=== PATIENT | male | born 1970 | race Caucasian/White ===

== ENCOUNTER 2022-12-18 19:00 | Inpatient (IN) ==
--- NOTE | 2022-12-18 20:11 | DR.ABDMALE ---
HPI Time seen Time Seen by Provider: 12/18/22 20:11 PCP Primary Care Physician: Turk Complaint Chief Complaint Doctors Comments: 52 y/o male presents for evaluation. Having lower abdominal pain over the past 4 days. Started right lower quadrant, very sharp, radiates across lower abdomen. Pain worse with palpation and movement. Worse with jarring in the car. Nothing makes it better. Denies fevers or chills. No nausea, vomiting, diarrhea or constipation. No change in his urine. Patient with history of several kidney stones in the past. Chief Complaint:: Patient stated for the last four days he has been hurting acr oss his lower abdomen. Patient stated it hurts when anything pushes on his lower abdomen. COVID-19 Coronavirus risk:travel/contact w/high risk person: No Has patient experienced Coronavirus symptoms: No Reviewed Nurses Notes Review: Yes Source History provided by:: Patient Mode of arrival Mode of Arrival: Ambulatory Timing Onset of Chief Complaint: 12/15/22 PMH PMH Past Medical History: Yes Past Medical History: Kidney Stones Past Surgical History: No Family History History of Family Medical Conditions: No Social History Does patient currently use any type of tobacco product: No Have you used tobacco products in the last 12 months: No Type of Tobacco Use: None Does any household member use tobacco: No Alcohol Use: None Do you use any recreational Drugs:: No Lives With: Alone Lives Where: Home Travel Risk Coronavirus risk:travel/contact w/high risk person: No Has patient experienced Coronavirus symptoms: No Infectious screening In the last 2 months have you had wt loss of >10#?: NO Have you had fever, night sweats or hemotysis?: No Have you traveled outside the country in the last 6 months?: No Isolation: Standard ROS Review of Systems Constitutional: No Symptoms Reported Eyes: No Symptoms Reported ENTM: No Symptoms Reported Respiratoy: No Symptoms Reported Cardiovascular: No Symptoms Reported Gastrointestinal/Abdominal: See HPI Genitourinary: No Symptoms Reported Neurological: No Symptoms Reported Musculoskeletal: No Symptoms Reported Integumentary: No Symptoms Reported Hematologic/Lymphatic: No Symptoms Reported All Other Systems: Reviewed and Negative PE Vital Signs Vital Signs: Temp Pulse Resp BP Pulse Ox O2 Del Method 12/18/22 20:33 20 12/18/22 19:20 97.8 F 107 H 20 134/79 97 Room Air General General Appearance: Alert and In No Apparent Distress Eyes Eye exam: PERRL and EOMI ENT ENT Exam: Mucous Membranes Moist Neck Neck Exam: Normal Inspection Respiratory Respiratory Exam: Normal Lung Sounds Bilat; negative Accessory Muscle Use or Respiratory Distress Cardiovascular Cardiovascular Exam: Regular Rate, Normal Rhythm and Normal Heart Sounds Abdominal Exam Abdominal Exam: Normal Bowel Sounds, Soft and Tenderness (RLQ > LLQ, with guarding, but no true rebound. ) Extremeties Extremities Exam: Normal Inspection Neurologic Neurological Exam: Alert, Oriented X3 and CN II-XII Intact; negative Motor Sensory Deficit Skin Skin Exam: Warm and Dry COURSE Treatment Treatment: 52-year-old male with lower abdominal pain over the past 4 days. Right lower quadrant worse than left. Work-up initiated. Patient given IV fluids, IV Toradol. 2244 -Labs overall acceptable. Patient underwent CT of the abdomen pelvis with IV contrast. Findings on the CT show sigmoid colon diverticulitis with evidence of microperforation. Also has bilateral intrarenal stones. Discussed with Dr. Mckeon, he will consult. Discussed with Dr. Gayle, he will admit. ROR Labs Reviewed Laboratory Results Reviewed?: Yes 12/18/22 20:30 12/18/22 20:30 Laboratory: WBC 8.7 X10^3/uL (3.6-10.0) 12/18/22 20: RBC 4.90 X10^6/uL (4.7-6.0) 12/18/22 20:30 Hgb 15.8 g/dL (13.5-18.0) 12/18/22 20:30 Hct 45.7 % (42.0-54.0) 12/18/22 20:30 MCV 93.3 fL (80.0-100.0) 12/18/22 20:30 MCH 32.2 pg (27.0-34.0) 12/18/22 20:30 MCHC 34.5 g/dL (33.0-35.0) 12/18/22 20:30 RDW 13.3 % (11.6-16.5) 12/18/22 20:30 Plt Count 224 X10^3/uL (150.0-450.0) 12/18/22 20:30 MPV 9.1 fL (7.4-11.0) 12/18/22 20:30 Neut % (Auto) 70.6 % (42.0-75.0) 12/18/22 20:30 Lymph % (Auto) 17.8 % (21.0-51.0) L 12/18/22 20:30 [place] % (Auto) 9.4 % (0.0-13.0) 12/18/22 20:30 Eos % (Auto) 1.8 % (0.9-2.9) 12/18/22 20:30 Baso % (Auto) 0.4 % (0.2-1.0) 12/18/22 20:30 Neut # (Auto) 6.1 x10^3/uL (2.2-4.8) H 12/18/22 20:30 Lymph # (Auto) 1.5 X10^3/uL (1.3-2.9) 12/18/22 20:30 [place] # (Auto) 0.8 x10^3/uL (0.3-0.8) 12/18/22 20:30 Eos # (Auto) 0.2 x10^3/uL (0.0-0.2) 12/18/22 20:30 Baso # (Auto) 0.0 X10^3/uL (0.0-0.1) 12/18/22 20:30 Absolute Nucleated RBC 0.1 /100WBC 12/18/22 20:30 Sodium 135 mmol/L (136-145) L 12/18/22 20:30 Corrected Sodium TNP 12/18/22 20:30 Potassium 3.8 mmol/L (3.5-5.1) 12/18/22 20:30 Chloride 98 mmol/L (98-107) 12/18/22 20:30 Carbon Dioxide 28.0 mmol/L (21-32) 12/18/22 20:30 BUN 12 mg/dL (7-18) 12/18/22 20:30 Creatinine 1.23 mg/dL (0.70-1.30) 12/18/22 20:30 Est GFR (MDRD) Af Amer > 60 (>60) 12/18/22 20:30 Est GFR (MDRD) Non-Af > 60 (>60) 12/18/22 20:30 Glucose 103 mg/dL (65-99) H 12/18/22 20:30 Calcium 8.7 mg/dL (8.5-10.1) 12/18/22 20: Corrected Calcium TNP 12/18/22 20: Total Bilirubin 2.80 mg/dL (0.2-1.0) H 12/18/22 20:30 AST 32 Units/L (15-37) 12/18/22 20: ALT 47 Units/L (12-78) 12/18/22 20: Alkaline Phosphatase 139 Units/L (46-116) H 12/18/22 20:30 Total Protein 7.9 g/dL (6.4-8.2) 12/18/22 20: Albumin 3.5 g/dL (3.4-5.0) 12/18/22 20: Globulin 4.4 g/dL (2.5-4.5) 12/18/22 20:30 Albumin/Globulin Ratio 0.8 Ratio (1.1-2.1) L 12/18/22 20: Lipase 111 Units/L (16-77) H 12/18/22 20:30 Specimen Type Clean catch urine 12/18/22 20:08 Urine Color Carolyn (YELLOW) 12/18/22 20:08 Urine Appearance Clear (CLEAR) 12/18/22 20:08 Urine pH 6.0 (5.0 - 8.0) 12/18/22 20:08 Ur Specific [place] 1.025 (1.000-1.030) 12/18/22 20:08 Urine Protein 2+ (NEGATIVE) 12/18/22 20:08 Urine Glucose (UA) Negative (NEGATIVE) 12/18/22 20:08 Urine Ketones 1+ (NEGATIVE) 12/18/22 20:08 Urine Blood 1+ (NEGATIVE) 12/18/22 20:08 Urine Nitrite Negative (NEGATIVE) 12/18/22 20:08 Urine Bilirubin 1+ (NEGATIVE) 12/18/22 20:08 Urine Urobilinogen 3+ (NORMAL) 12/18/22 20:08 Ur Leukocyte Esterase 1+ (NEGATIVE) 12/18/22 20:08 Urine RBC 0-2 /HPF (0-3) 12/18/22 20:08 Urine WBC 3-5 /HPF (0-5) 12/18/22 20:08 Ur Squamous Epith Cells Rare /HPF (NEGATIVE) 12/18/22 20:08 Urine Bacteria Trace /HPF (NEGATIVE) 12/18/22 20:08 Urine Mucus Moderate /HPF (NEGATIVE) 12/18/22 20:08 Ur Culture Indicated? No/not indicated 12/18/22 20:08 Labs acceptable XRAY XRAY Interpreted by: Radiologist X-ray Results: HISTORY Patient stated for the last four days he has been hurting across his lower abdomen. Patient stated it hurts when anything pushes on his lower abdomen. STUDY ABDOMEN/PELVIS WITH CON COMPARISON None TECHNIQUE Multiple axial images of the abdomen and pelvis were obtained from the lung bases to the pubic symphysis after the administration of IV contrast. Dose reduction techniques including Automated Exposure Control (AEC) and adjustment of mA and kV were utilized. FINDINGS The visualized portions of the lung bases are unremarkable . The liver, spleen, pancreas, and adrenal glands are unremarkable in their CT appearance. The gallbladder is unremarkable in its CT appearance the kidneys are normal in size. Bilateral nephrolithiasis, nonobstructing.. No significant mesenteric lymphadenopathy or stranding can be observed. No free fluid or free air is seen within the abdomen. Normal appendix right lower quadrant. No bowel wall thickening or bowel dilatation is present. Colon is normal in caliber. There are scattered diverticula arising from the descending and sigmoid colon. There is focal colonic wall thickening and pericolonic inflammation a surrounding the sigmoid colon consistent with acute diverticulitis. There is a small a collection of extraluminal air indicative of micro perforation.. No abscess is identified. The urinary bladder is grossly unremarkable. The bony structures are grossly intact. IMPRESSION Acute sigmoid colon diverticulitis with evidence of micro perforation. Bilateral nephrolithiasis, nonobstructing. Electronically signed by: Casimiro Villeda (Dec 18, 2022 22:30:21) Opioid Opioid Risk Tool Age (Trace box if 16-45): No History of Preadolescent Sexual Abuse: No Total: 0 Total Score Risk Category: Low Risk Copyright: Kody JOHNSON predicting aberrant behaviors Discharge Plan Diagnosis Discharge Problem: Perforation of sigmoid colon due to diverticulitis Discharge Plan Patient Disposition: 09 ADMITTED INPATIENT Condition: Stable Prescriptions: No Action [facility] Concerns: Post Hospitalization: new medications and changes needed to prevent readmission or further decline. Pt educated and given instructions on all concerns. Plan of Treatment: Continue with present treatment and follow up plan. Pt is to keep follow up appointment as instructed and take medications as ordered. Orders to Discharge Patient Discharge Orders: Transfer (Routine); Ordered 12/18/22 Ordered By: Hans Morse Follow ups/Referrals Follow ups/Referrals: [place] ESTRADA [Primary Care Provider] - 3 days
[2022-12-18 20:14] LABS: BILIRUBIN,URINE 1+ (NEGATIVE); BLOOD/HEMOGLOBIN,URINE 1+ (NEGATIVE); GLUCOSE, URINE NEGATIVE (NEGATIVE); KETONES,URINE 1+ (NEGATIVE); LEUKOCYTE ESTERASE ,URINE 1+ (NEGATIVE); NITRITES,URINE NEGATIVE (NEGATIVE); PROTEIN,URINE 2+ (NEGATIVE); UROBILINOGEN,URINE 3+ (NORMAL)
[2022-12-18] MEDS ORDERED: NS 1,000 ML IV 1,000 ML ONE (20:14)
[2022-12-18] MEDS ORDERED: TORADOL 30 MG VIAL IVP ONE (20:17)
[2022-12-18] MEDS ORDERED: NS 1,000 ML IV 1,000 ML IV ONE (20:17)
[2022-12-18] MEDS ORDERED: TORADOL 30 MG VIAL ONE (20:23)
[2022-12-18 20:24] LABS: APPEARANCE,URINE CLEAR (CLEAR); COLOR,URINE AMBER (YELLOW)
[2022-12-18 20:25] LABS: BACTERIA,URINE TRACE /HPF (NEGATIVE); RBC,URINE 0-2 /HPF (0-3); SQUAMOUS EPITHELIAL CELL,UR RARE /HPF (NEGATIVE)
[2022-12-18 20:50] LABS: BASOPHILS % (AUTO) 0.4 % (0.2-1.0); EOSINOPHILS # (AUTO) 0.2 x10^3/uL (0.0-0.2); EOSINOPHILS % (AUTO) 1.8 % (0.9-2.9); HEMATOCRIT 45.7 % (42.0-54.0); HEMOGLOBIN 15.8 g/dL (13.5-18.0); LYMPHOCYTES # (AUTO) 1.5 X10^3/uL (1.3-2.9); LYMPHOCYTES % (AUTO) 17.8 % (21.0-51.0); MEAN CORPUSCULAR HEMOGLOBIN 32.2 pg (27.0-34.0); MEAN CORPUSCULAR HGB CONC 34.5 g/dL (33.0-35.0); MEAN CORPUSCULAR VOLUME 93.3 fL (80.0-100.0); MEAN PLATELET VOLUME 9.1 fL (7.4-11.0); MONOCYTES # (AUTO) 0.8 x10^3/uL (0.3-0.8); MONOCYTES % (AUTO) 9.4 % (0.0-13.0); NEUTROPHILS # (AUTO) 6.1 x10^3/uL (2.2-4.8); NEUTROPHILS % (AUTO) 70.6 % (42.0-75.0); PLATELET COUNT 224 X10^3/uL (150.0-450.0); RED CELL DISTRIBUTION WIDTH 13.3 % (11.6-16.5); WHITE BLOOD COUNT 8.7 X10^3/uL (3.6-10.0)
[2022-12-18 21:06] LABS: ALANINE AMINOTRANSFERASE 47 Units/L (12-78); ALBUMIN 3.5 g/dL (3.4-5.0); ALKALINE PHOSPHATASE 139 Units/L (46-116); ASPARTATE AMINO TRANSFERASE 32 Units/L (15-37); BLOOD UREA NITROGEN 12 mg/dL (7-18); CALCIUM 8.7 mg/dL (8.5-10.1); CHLORIDE 98 mmol/L (98-107); CREATININE 1.23 mg/dL (0.70-1.30); GLUCOSE 103 mg/dL (65-99); LIPASE 111 Units/L (16-77); POTASSIUM 3.8 mmol/L (3.5-5.1); SODIUM 135 mmol/L (136-145); TOTAL PROTEIN 7.9 g/dL (6.4-8.2); eGFR NON BLACK RACES > 60 (>60)
[2022-12-18] MEDS ORDERED: NS 100 ML IV 100 ML ONE (21:52)
[2022-12-18] MEDS ORDERED: OMNIPAQUE 350 mg/mL 100 mL BTL 100 ML ONE (21:53)
--- NOTE | 2022-12-18 22:31 | CT ---
HISTORYPatient stated for the last four days he has been hurting across his lower abdomen. Patient stated it hurts when anything pushes on his lower abdomen.STUDYABDOMEN/PELVIS WITH CONCOMPARISONNoneTECHNIQUEMultiple axial images of the abdomen and pelvis were obtained from the lung bases to the pubic symphysis after the administration of IV contrast. Dose reduction techniques including Automated Exposure Control (AEC) and adjustment of mA and kV were utilized.FINDINGSThe visualized portions of the lung bases are unremarkable . The liver, spleen, pancreas, and adrenal glands are unremarkable in their CT appearance. The gallbladder is unremarkable in its CT appearance the kidneys are normal in size. Bilateral nephrolithiasis, nonobstructing.. No significant mesenteric lymphadenopathy or stranding can be observed. No free fluid or free air is seen within the abdomen. Normal appendix right lower quadrant. No bowel wall thickening or bowel dilatation is present. Colon is normal in caliber. There are scattered diverticula arising from the descending and sigmoid colon. There is focal colonic wall thickening and pericolonic inflammation a surrounding the sigmoid colon consistent with acute diverticulitis. There is a small a collection of extraluminal air indicative of micro perforation.. No abscess is identified. The urinary bladder is grossly unremarkable. The bony structures are grossly intact.IMPRESSIONAcute sigmoid colon diverticulitis with evidence of micro perforation.Bilateral nephrolithiasis, nonobstructing.Electronically signed by: Casimiro Villeda (Dec 18, 2022 22:30:21)
[2022-12-18] MEDS ORDERED: FLAGYL IV PREMIX 500 MG BAG 500 MG/100 ML BAG IV STA (23:13)
[2022-12-18] MEDS ORDERED: FLAGYL IV PREMIX 500 MG BAG 500 MG/100 ML BAG IV ONE (23:15)
[2022-12-19] MEDS ORDERED: CONSULT PHARMACY - POTASSIUM & MAGNESIUM XX SCH (00:16)
[2022-12-19] MEDS ORDERED: MORPHINE SULFATE INJ 4 MG IVP PRN (00:16)
[2022-12-19] MEDS ORDERED: ZOFRAN INJ 4 MG VIAL IVP PRN (00:16)
[2022-12-19] MEDS ORDERED: K-DUR TAB 20 MEQ PO SCH (01:00)
[2022-12-19] MEDS: D5 1/2 NS 1,000 ML 1,000 ML IV SCH ×4 (01:03→17:51)
[2022-12-19] MEDS: K-RIDER 10 MEQ/NS 100 ML 10 MEQ/100 ML BAG IV SCH ×2 (01:04→03:09)
[2022-12-19] MEDS: LEVAQUIN PREMIX IV 750 MG 750 MG/150 ML BAG IV SCH (01:14)
[2022-12-19 01:30] VITALS: BMI 40.7
[2022-12-19] MEDS: FLAGYL IV PREMIX 500 MG BAG 500 MG/100 ML BAG IV SCH ×4 (02:43→23:19)
[2022-12-19 06:46] LABS: BASOPHILS % (AUTO) 0.5 % (0.2-1.0); EOSINOPHILS # (AUTO) 0.2 x10^3/uL (0.0-0.2); EOSINOPHILS % (AUTO) 3.1 % (0.9-2.9); HEMATOCRIT 41.4 % (42.0-54.0); HEMOGLOBIN 14.2 g/dL (13.5-18.0); LYMPHOCYTES # (AUTO) 1.3 X10^3/uL (1.3-2.9); LYMPHOCYTES % (AUTO) 18.9 % (21.0-51.0); MEAN CORPUSCULAR HGB CONC 34.3 g/dL (33.0-35.0); MEAN CORPUSCULAR VOLUME 93.2 fL (80.0-100.0); MEAN PLATELET VOLUME 9.1 fL (7.4-11.0); MONOCYTES # (AUTO) 0.6 x10^3/uL (0.3-0.8); MONOCYTES % (AUTO) 9.1 % (0.0-13.0); NEUTROPHILS # (AUTO) 4.8 x10^3/uL (2.2-4.8); NEUTROPHILS % (AUTO) 68.4 % (42.0-75.0); PLATELET COUNT 196 X10^3/uL (150.0-450.0); RED BLOOD COUNT 4.44 X10^6/uL (4.7-6.0); RED CELL DISTRIBUTION WIDTH 13.2 % (11.6-16.5)
[2022-12-19 06:56] LABS: ALANINE AMINOTRANSFERASE 36 Units/L (12-78); ALBUMIN 2.9 g/dL (3.4-5.0); ALKALINE PHOSPHATASE 117 Units/L (46-116); ASPARTATE AMINO TRANSFERASE 17 Units/L (15-37); BLOOD UREA NITROGEN 13 mg/dL (7-18); CALCIUM 8.1 mg/dL (8.5-10.1); CARBON DIOXIDE 28.9 mmol/L (21-32); CHLORIDE 101 mmol/L (98-107); CREATININE 1.14 mg/dL (0.70-1.30); GLUCOSE 95 mg/dL (65-99); POTASSIUM 3.8 mmol/L (3.5-5.1); SODIUM 137 mmol/L (136-145); eGFR NON BLACK RACES > 60 (>60)
[2022-12-19] MEDS ORDERED: LEVAQUIN PREMIX IV 750 MG 750 MG/150 ML BAG IV SCH (09:00)
[2022-12-19] MEDS ORDERED: MILK OF MAGNESIA PO SCH (09:00)
--- NOTE | 2022-12-19 20:05 | DR.H&P ---
H&P History & Physical for Day of: H&P Date: 12/19/22 Chief Complaint Chief Complaint: Abdominal pain x4 days Allergies Allergies Allergy/AdvReac Type Severity Reaction Status Date / Time No Known Allergies Allergy Verified 12/18/22 19:58 History of Present Illness History of Present Illness: This is a pleasant 52-year-old white male who presented to [facility] emergency department last night with a 4-day history of right lower abdominal pain radiating across his abdomen. He reports that pressing on his abdomen and riding in a car when he is getting willis around causes the pain to get worse. There is nothing is making the pain better at this time. He denies nausea, vomiting, diarrhea, melena, and hematochezia. CT scan of the abdomen and pelvis shows that he has acute diverticulitis with micro-perforations. Otherwise is fairly healthy, but he does have a history of kidney stones, and the CT scan also showed bilateral nonobstructing renal lithiasis. We subsequently will admit him to the medical floor and put in an order for surgical consult with Dr. Nelson. We started him on IV levofloxacin and Flagyl in the meantime. We will plan on repeating daily CBCs and CMP's as well as inflammatory panels to see if he is responding to the treatment. Past Medical History Past Medical History: Kidney Stones Social History Does patient currently use any type of tobacco product: No Have you used tobacco products in the last 12 months: Yes Type of Tobacco Use: Smokeless Does any household member use tobacco: No Alcohol Use: None Drug Use: None Medications Home Medications: Home Medications Medication Instructions Recorded Confirmed Type NK 12/18/22 12/18/22 History Labs 12/19/22 05:22 12/19/22 05:22 Labs: Laboratory WBC 7.0 X10^3/uL (3.6-10.0) 12/19/22 05:22 RBC 4.44 X10^6/uL (4.7-6.0) L 12/19/22 05:22 Hgb 14.2 g/dL (13.5-18.0) 12/19/22 05:22 Hct 41.4 % (42.0-54.0) L 12/19/22 05:22 MCV 93.2 fL (80.0-100.0) 12/19/22 05:22 MCH 32.0 pg (27.0-34.0) 12/19/22 05:22 MCHC 34.3 g/dL (33.0-35.0) 12/19/22 05:22 RDW 13.2 % (11.6-16.5) 12/19/22 05:22 Plt Count 196 X10^3/uL (150.0-450.0) 12/19/22 05:22 MPV 9.1 fL (7.4-11.0) 12/19/22 05:22 Neut % (Auto) 68.4 % (42.0-75.0) 12/19/22 05:22 Lymph % (Auto) 18.9 % (21.0-51.0) L 12/19/22 05:22 [place] % (Auto) 9.1 % (0.0-13.0) 12/19/22 05:22 Eos % (Auto) 3.1 % (0.9-2.9) H 12/19/22 05:22 Baso % (Auto) 0.5 % (0.2-1.0) 12/19/22 05:22 Neut # (Auto) 4.8 x10^3/uL (2.2-4.8) 12/19/22 05:22 Lymph # (Auto) 1.3 X10^3/uL (1.3-2.9) 12/19/22 05:22 [place] # (Auto) 0.6 x10^3/uL (0.3-0.8) 12/19/22 05:22 Eos # (Auto) 0.2 x10^3/uL (0.0-0.2) 12/19/22 05:22 Baso # (Auto) 0.0 X10^3/uL (0.0-0.1) 12/19/22 05:22 Absolute Nucleated RBC 0.0 /100WBC 12/19/22 05:22 Sodium 137 mmol/L (136-145) 12/19/22 05:22 Corrected Sodium TNP 12/19/22 05:22 Potassium 3.8 mmol/L (3.5-5.1) 12/19/22 05:22 Chloride 101 mmol/L (98-107) 12/19/22 05:22 Carbon Dioxide 28.9 mmol/L (21-32) 12/19/22 05:22 BUN 13 mg/dL (7-18) 12/19/22 05:22 Creatinine 1.14 mg/dL (0.70-1.30) 12/19/22 05:22 Est GFR (MDRD) Af Amer > 60 (>60) 12/19/22 05:22 Est GFR (MDRD) Non-Af > 60 (>60) 12/19/22 05:22 Glucose 95 mg/dL (65-99) 12/19/22 05:22 Calcium 8.1 mg/dL (8.5-10.1) L 12/19/22 05:22 Corrected Calcium 9.0 mg/dL (8.5-10.1) 12/19/22 05:22 Total Bilirubin 1.60 mg/dL (0.2-1.0) H 12/19/22 05:22 AST 17 Units/L (15-37) 12/19/22 05:22 ALT 36 Units/L (12-78) 12/19/22 05:22 Alkaline Phosphatase 117 Units/L (46-116) H 12/19/22 05:22 Total Protein 7.0 g/dL (6.4-8.2) 12/19/22 05:22 Albumin 2.9 g/dL (3.4-5.0) L 12/19/22 05:22 Globulin 4.1 g/dL (2.5-4.5) 12/19/22 05:22 Albumin/Globulin Ratio 0.7 Ratio (1.1-2.1) L 12/19/22 05:22 Lipase 111 Units/L (16-77) H 12/18/22 20:30 Specimen Type Clean catch urine 12/18/22 20:08 Urine Color Carolyn (YELLOW) 12/18/22 20:08 Urine Appearance Clear (CLEAR) 12/18/22 20:08 Urine pH 6.0 (5.0 - 8.0) 12/18/22 20:08 Ur Specific [place] 1.025 (1.000-1.030) 12/18/22 20:08 Urine Protein 2+ (NEGATIVE) 12/18/22 20:08 Urine Glucose (UA) Negative (NEGATIVE) 12/18/22 20:08 Urine Ketones 1+ (NEGATIVE) 12/18/22 20:08 Urine Blood 1+ (NEGATIVE) 12/18/22 20:08 Urine Nitrite Negative (NEGATIVE) 12/18/22 20:08 Urine Bilirubin 1+ (NEGATIVE) 12/18/22 20:08 Urine Urobilinogen 3+ (NORMAL) 12/18/22 20:08 Ur Leukocyte Esterase 1+ (NEGATIVE) 12/18/22 20:08 Urine RBC 0-2 /HPF (0-3) 12/18/22 20:08 Urine WBC 3-5 /HPF (0-5) 12/18/22 20:08 Ur Squamous Epith Cells Rare /HPF (NEGATIVE) 12/18/22 20:08 Urine Bacteria Trace /HPF (NEGATIVE) 12/18/22 20:08 Urine Mucus Moderate /HPF (NEGATIVE) 12/18/22 20:08 Ur Culture Indicated? No/not indicated 12/18/22 20:08 Review of Systems Constitutional: No Symptoms Reported Eyes: No Symptoms Reported ENT: No Symptoms Reported Respiratory: No Symptoms Reported Cardiovascular: No Symptoms Reported Gastrointestinal: Abdominal Pain; denies Nausea, Vomiting, Diarrhea, Constipation, Melena or Hematochezia Genitourinary: No Symptoms Reported Musculoskeletal: No Symptoms Reported Skin: No Symptoms Reported Neurological: No Symptoms Reported Physical Exam Vital Signs: Vital Signs Temperature 98.6 F Temperature 98.0 F Pulse Rate [Right Apical] 87 Pulse Rate [Right Apical] 91 Respiratory Rate 18 Respiratory Rate 20 Blood Pressure [Right Arm] 113/70 Blood Pressure [Right Arm] 97/56 O2 Sat by Pulse Oximetry 97 O2 Sat by Pulse Oximetry 96 Oriented: Normal, Time, Person and Place Eyes: Normal Ear: Normal Nose: Normal Throat: Normal Respiratory: Clear Throughout Cardiovascular: Normal : Normal Auscultation: Bowel Sounds: Normal Palpation: Normal Tenderness: LLQ and Periumbilical Musculoskeletal: Normal Psychiatric: Normal Mood Description: Calm Affect: Normal Speech Pattern: Clear and Appropriate Assessment/Plan (1) Perforation of sigmoid colon due to diverticulitis: Status: Acute Plan: IV levofloxacin and Flagyl. General surgery consult with Dr. Nelson. We will check daily CRPs and ESR's. Review H&P Reviewed: Yes Patient was examined?: Yes
[2022-12-19] MEDS ORDERED: COLACE CAP 100 MG PO SCH (21:00)
[2022-12-20 00:28] VITALS: RESP 20
[2022-12-20] MEDS: LEVAQUIN PREMIX IV 750 MG 750 MG/150 ML BAG IV SCH (01:16)
[2022-12-20] MEDS: D5 1/2 NS 1,000 ML 1,000 ML IV SCH ×2 (01:17→11:00)
[2022-12-20 06:48] LABS: BASOPHILS % (AUTO) 0.7 % (0.2-1.0); EOSINOPHILS # (AUTO) 0.3 x10^3/uL (0.0-0.2); EOSINOPHILS % (AUTO) 5.8 % (0.9-2.9); HEMOGLOBIN 14.2 g/dL (13.5-18.0); LYMPHOCYTES # (AUTO) 1.1 X10^3/uL (1.3-2.9); LYMPHOCYTES % (AUTO) 23.5 % (21.0-51.0); MEAN CORPUSCULAR HEMOGLOBIN 32.2 pg (27.0-34.0); MEAN CORPUSCULAR HGB CONC 34.6 g/dL (33.0-35.0); MEAN CORPUSCULAR VOLUME 93.1 fL (80.0-100.0); MEAN PLATELET VOLUME 8.9 fL (7.4-11.0); MONOCYTES # (AUTO) 0.5 x10^3/uL (0.3-0.8); MONOCYTES % (AUTO) 10.3 % (0.0-13.0); NEUTROPHILS # (AUTO) 2.8 x10^3/uL (2.2-4.8); NEUTROPHILS % (AUTO) 59.7 % (42.0-75.0); PLATELET COUNT 220 X10^3/uL (150.0-450.0); RED CELL DISTRIBUTION WIDTH 13.3 % (11.6-16.5); WHITE BLOOD COUNT 4.7 X10^3/uL (3.6-10.0)
[2022-12-20 06:56] LABS: ALANINE AMINOTRANSFERASE 28 Units/L (12-78); ALBUMIN 2.9 g/dL (3.4-5.0); ALKALINE PHOSPHATASE 109 Units/L (46-116); ASPARTATE AMINO TRANSFERASE 11 Units/L (15-37); BLOOD UREA NITROGEN 14 mg/dL (7-18); CALCIUM 8.3 mg/dL (8.5-10.1); CARBON DIOXIDE 29.6 mmol/L (21-32); CHLORIDE 102 mmol/L (98-107); COR CA(FOR HYPOALB) 9.2 mg/dL (8.5-10.1); CREATININE 1.25 mg/dL (0.70-1.30); GLUCOSE 88 mg/dL (65-99); MAGNESIUM 2.1 mg/dL (2.0-2.9); POTASSIUM 3.7 mmol/L (3.5-5.1); SODIUM 138 mmol/L (136-145); TOTAL PROTEIN 6.9 g/dL (6.4-8.2); eGFR NON BLACK RACES > 60 (>60)
--- NOTE | 2022-12-20 08:01 | RAD ---
EXAM:KUBHISTORY:Diverticulitis with perforationCOMPARISON:CT abdomen December 18, 2022FINDINGS:Supine views of the abdomen are basically nondiagnostic secondary to patient habitus, underpenetration and soft tissue attenuation.There is no obvious intestinal dilatation, mass or large calcification. Intraperitoneal air can not be evaluated on supine exam. Previously described nephrolithiasis is not identified.IMPRESSION:No specific abnormality. See above.THIS IS AN ELECTRONICALLY VERIFIED FINAL [id number]/20/2022 7:51 AM - Electronically signed by Nick Mandujano MD
[2022-12-20] MEDS: FLAGYL IV PREMIX 500 MG BAG 500 MG/100 ML BAG IV SCH (08:55)
[2022-12-20 09:59] VITALS: BP 142/78; PULSE 80; TEMP 97.6; O2SAT 98
[2022-12-20] MEDS ORDERED: NS IV ONE (10:00)
[2022-12-20] MEDS ORDERED: POTASSIUM CHLORIDE IV ONE (10:00)
== END 2022-12-20 12:35 | disposition home or self-care (01) | DRG 392 ==
LOC: ER 19:00 → MED/SURG 23:09
PROVIDERS: ADMIT Surgery; ATTEND Family Medicine
DX: R79.82 Elevated C-reactive protein (CRP); N20.0 Calculus of kidney; R10.30 Lower abdominal pain, unspecified; R70.0 Elevated erythrocyte sedimentation rate; K57.20 Diverticulitis of large intestine with perforation and abscess without bleeding; Z87.442 Personal history of urinary calculi